=== PATIENT | male | born 1930 | race Caucasian/White ===

== ENCOUNTER 2018-04-26 22:29 | Inpatient (IN) | payer OTHER, MEDICARE ==
[~2018-04-26] VITALS: Ht 177.8 cm; Wt 89.7 kg
[~2018-04-26 22:29] MED LIST: ALPR.25; ALPR.5 PO; ALPR1 PO; AMIT50 PO; ASCO500; ASPI325; ASPI325 PO; ATEN50; ATOR10; ATOR20 PO; B-1100 MG PO; BENAML10/5; BUPR100ER PO; CITA20 PO; CLOP75; CLOP75 PO; CYAN100; CYAN1000 PO; DOCU100 PO; ESCI10 PO; FAMO10 PO; FAMO20 PO; FAMO40 PO; FOLI400; FURO20 PO; GABA300 PO; ISOD40ER PO; ISOMON30 PO; ISOMON60ER; KETO10 PO; LISI10 PO; LISI20; LISI20 PO; LOVA20 PO; METO25ER PO; METO50 PO; METO50ER PO; NITR.4SL SL; OMEP20ER PO; ONDA4ODT MM; OXYACE5T PO; OXYC10ER PO; OXYC15ER PO; OXYC30ER PO; OXYC5 PO; OXYCONTIN PO; OXYCONTIN SR PO; POTCHL20ER PO; PROM25 PO; PYRI100 PO; RANO500T PO; ROSU10TA PO; ROSU5 PO; RXNITR.4; SERT100; SERT100 PO; SPIR25 PO; Senna Laxative8.6 MG PO; TAMS.4ER PO; TOCO400; TOPI25; VITAMIN B12 PO; VITAMIN D PO; VITB100 PO; Zofran Odt4 MG SL; [UNRECOGNIZED DRUG - OTHER]; [UNRECOGNIZED DRUG - REMARK] PO
[2018-04-26 22:57] LABS: BASOPHILS ABSOLUTE AUTO 0.07 K/mm3 (0.00-0.23); BASOPHILS PERCENT AUTO 1 % (0-2); EOSINOPHILS ABSOLUTE AUTO 0.08 K/mm3 (0.00-0.68); EOSINOPHILS PERCENT AUTO 1 % (0-6); Hemoglobin 12.1 g/dL (13.5-17.5); IMMATURE GRAN ABSOLUTE AUTO 0.01 K/mm3 (0.00-0.10); IMMATURE GRAN PERCENT AUTO 0 % (0-1); LYMPHOCYTES ABSOLUTE AUTO 1.52 K/mm3 (0.84-5.20); LYMPHOCYTES PERCENT AUTO 17 % (21-46); MONOCYTES ABSOLUTE AUTO 0.96 K/mm3 (0.16-1.47); MONOCYTES PERCENT AUTO 11 % (4-13); Mean Corpuscular HGB Conc 34.6 g/dL (31.5-36.5); Mean Corpuscular Volume 98 fL (80-100); Mean Platelet Volume 10.4 fL (9.1-12.4); NEUTROPHILS ABSOLUTE AUTO 6.24 K/mm3 (1.96-9.15); NEUTROPHILS PERCENT AUTO 70 % (41-73); Platelet Count 208 K/mm3 (150-400); RDW Coefficient Variation 12.6 % (11.7-14.2); RDW Standard Deviation 45.6 fL (35.1-46.3); Red Blood Cell Count 3.56 M/mm3 (4.30-5.90); White Blood Cell Count 8.88 K/mm3 (4.00-11.30)
[2018-04-26 23:12] LABS: Alanine Aminotransfer (ALT/SGP 33 U/L (12-78); Albumin, Blood 3.8 g/dL (3.4-5.0); Alk Phos 68 U/L (50-136); Anion Gap 12 mmol/L (6-16); Aspartate Aminotrans (AST/SGOT 44 U/L (12-37); Bilirubin, Total 0.2 mg/dL (0.1-1.0); Blood Urea Nitrogen 32 mg/dL (8-24); Bun/Creatinine Ratio 27.4 (12.0-20.0); CO2, Blood 21 mmol/L (21-32); Calcium, Blood 9.1 mg/dL (8.5-10.1); Chloride, Blood 110 mmol/L (98-108); Creatinine, Blood 1.17 mg/dL (0.60-1.20); Globulin, Blood 3.7 g/dL (2.2-4.0); Glomerular Filtration Rate >60 (60-); Glucose, Blood 124 mg/dL (70-99); Potassium, Blood 3.4 mmol/L (3.5-5.5); Sodium, Blood 143 mmol/L (136-145); Total Protein, Blood 7.5 g/dL (6.4-8.2); Troponin I 0.034 ng/mL (0.000-0.040)
[2018-04-27 05:57] LABS: Hematocrit 32.7 % (37.0-53.0); Hemoglobin 11.1 g/dL (13.5-17.5); Mean Corpuscular HGB 33.1 pg (26.0-34.0); Mean Corpuscular HGB Conc 33.9 g/dL (31.5-36.5); Mean Corpuscular Volume 98 fL (80-100); Mean Platelet Volume 10.2 fL (9.1-12.4); Platelet Count 183 K/mm3 (150-400); RDW Coefficient Variation 12.8 % (11.7-14.2); RDW Standard Deviation 45.5 fL (35.1-46.3); Red Blood Cell Count 3.35 M/mm3 (4.30-5.90); White Blood Cell Count 6.88 K/mm3 (4.00-11.30)
[2018-04-27 06:18] LABS: Alanine Aminotransfer (ALT/SGP 32 U/L (12-78); Albumin, Blood 3.5 g/dL (3.4-5.0); Alk Phos 62 U/L (50-136); Anion Gap 5 mmol/L (6-16); Aspartate Aminotrans (AST/SGOT 42 U/L (12-37); Bilirubin, Total 0.4 mg/dL (0.1-1.0); Blood Urea Nitrogen 27 mg/dL (8-24); Bun/Creatinine Ratio 27.3 (12.0-20.0); CO2, Blood 27 mmol/L (21-32); Calcium, Blood 8.6 mg/dL (8.5-10.1); Chloride, Blood 111 mmol/L (98-108); Creatinine, Blood 0.99 mg/dL (0.60-1.20); Globulin, Blood 3.6 g/dL (2.2-4.0); Glomerular Filtration Rate >60 (60-); Glucose, Blood 92 mg/dL (70-99); Potassium, Blood 3.8 mmol/L (3.5-5.5); Sodium, Blood 143 mmol/L (136-145); Total Protein, Blood 7.1 g/dL (6.4-8.2)
[2018-04-27 07:03] LABS: Troponin I 1.49 ng/mL (0.000-0.040)
[2018-04-27 07:20] LABS: Creatine Kinase MB 14.7 ng/mL (0.0-3.6); Creatine Kinase MB Index 3.4 (0.0-4.0)
[2018-04-27] MEDS ORDERED: [UNRECOGNIZED DRUG - CODE] PO (07:53)
[2018-04-27] MEDS ORDERED: [UNRECOGNIZED DRUG - CODE] PO (07:54)
--- NOTE | 2018-04-27 15:27 | NUR ---
ADMIT TO 311 FROM ED. PT ARRIVED TO FLOOR IN NO ACUTE DISTRESS ACCOMPANIED BY FRIEND. DENIES CP, SOB OR NAUSEA NO HEADACHE DENIES ANY OTHER C/O. BED LOW AND IN LOCKED POSITION, CALL LIGHT WITHIN REACH. PT AND FRIEND INFORMED ABOUT FREQUENT ROUNDING.
--- NOTE | 2018-04-27 15:39 | NUR ---
SPOKE WITH PALLIATIVE CARE RN CONSULT REQUESTED.
--- NOTE | 2018-04-27 17:51 | NUR ---
SHIFT SUMMARY ED ADMIT @1430 FOR DIZZINESS AND ELEVATED TROPONIN. INDEPENDENT IN ROOM. DENIES ANY CP, SOB OR NAUSEA NO DIAPHORESIS. PLEASANT, TALKATIVE. MULTIPLE SD'S AND CABG.
[2018-04-27 17:58] LABS: Creatine Kinase MB 12.5 ng/mL (0.0-3.6)
[2018-04-27 17:59] LABS: Creatine Kinase MB Index 3.6 (0.0-4.0)
[2018-04-27 18:59] LABS: Source, Urine Clean Catch
[2018-04-27 19:38] LABS: Appearance, Urine Clear (Clear); Bilirubin, Urine Neg (Neg); Blood, Urine Neg (Neg); Color, Urine Yellow (P-Yellow); Glucose Qualitative, Urine Neg (Neg); Ketones, Urine Neg (Neg); Leukocyte Esterase, Urine Neg (Neg); Nitrite, Urine Neg (Neg); Protein, Urine Neg (Neg); Urobilinogen, Urine NORM (Normal)
--- NOTE | 2018-04-28 04:42 | NUR ---
ENVIRONMENTAL INTERN SUMMARY PT AAOX4 AND VERY PLEASANT. DR CELESTE CAME TO SEE PT AT START OF SHIFT AND ORDERED PT TO BE PLACED ON TELE MONITORING. TELE PLACED AND PT HAS BEEN SINUS RHYTHM WITH A 1ST DEG BLOCK, BBB, AND OCCASIONAL PVC'S. PT TO HAVE STRESS TEST IN THE MORNING AND HAS BEEN NPO SINCE MIDNIGHT IN PREP FOR TEST. PT HAS HAD NO COMPLAINTS AND STATES HE'S GOTTEN MORE SLEEP TONIGHT THAN THE PAST FEW DAYS. VSS, WILL CONTINUE TO MONITOR.
[2018-04-28 10:10] LABS: BASOPHILS ABSOLUTE AUTO 0.03 K/mm3 (0.00-0.23); BASOPHILS PERCENT AUTO 1 % (0-2); EOSINOPHILS PERCENT AUTO 2 % (0-6); Hemoglobin 11.4 g/dL (13.5-17.5); IMMATURE GRAN ABSOLUTE AUTO 0.01 K/mm3 (0.00-0.10); IMMATURE GRAN PERCENT AUTO 0 % (0-1); LYMPHOCYTES PERCENT AUTO 23 % (21-46); MONOCYTES PERCENT AUTO 9 % (4-13); Mean Corpuscular HGB 33.1 pg (26.0-34.0); Mean Corpuscular HGB Conc 33.5 g/dL (31.5-36.5); Mean Corpuscular Volume 99 fL (80-100); Mean Platelet Volume 10.4 fL (9.1-12.4); NEUTROPHILS ABSOLUTE AUTO 4.38 K/mm3 (1.96-9.15); NEUTROPHILS PERCENT AUTO 66 % (41-73); Platelet Count 164 K/mm3 (150-400); RDW Coefficient Variation 12.9 % (11.7-14.2); RDW Standard Deviation 46.3 fL (35.1-46.3); Red Blood Cell Count 3.44 M/mm3 (4.30-5.90); White Blood Cell Count 6.62 K/mm3 (4.00-11.30)
[2018-04-28 10:27] LABS: Anion Gap 6 mmol/L (6-16); Blood Urea Nitrogen 20 mg/dL (8-24); Bun/Creatinine Ratio 26.9 (12.0-20.0); CO2, Blood 26 mmol/L (21-32); Calcium, Blood 8.5 mg/dL (8.5-10.1); Chloride, Blood 111 mmol/L (98-108); Creatinine, Blood 0.74 mg/dL (0.60-1.20); Glomerular Filtration Rate >60 (60-); Glucose, Blood 89 mg/dL (70-99); Potassium, Blood 3.9 mmol/L (3.5-5.5); Sodium, Blood 143 mmol/L (136-145)
--- NOTE | 2018-04-28 16:10 | NUR ---
Initial Visit: Palliative Care Consult for Advanced Care Planning. Pt is A&O and reports 6/10 headache pain. Pt denies SOB, anxiety, nausea, and depression at this time. Pt served in the [employer] during the [place] [employer] and is a retired science analyst. He reports no religous beliefs. Engaged in therapeutic conversation about goals of care. He reports living at home alone. His this last July and admits struggling with his the of his for sometime but is coping better now. He reports no family that lives in [place] and has a friend that checks on him routinely and brings him meals. Discussed option for caregivers to come into his home to assist with needs and he denies need at this time. Discussed AD/POLST and Pt reports having a completed POLST and is at his PCP's office. He states that his wishes are for CPR and limited treatment. Pt reports no concerns at this time. Spoke with Pt's nurse Arely and reported Pt's headache. Arely reports no other concerns at this time. Will reamin available.
--- NOTE | 2018-04-28 18:41 | NUR ---
SHIFT SUMMARY PATIENT ALERT AND ORIENTED. INDEPENDENT IN THE ROOM. AWAITING THE STRESS PART OF HIS STRESS TEST AND POTENTIAL DISCHARGE IN THE AM.
[2018-04-29 04:57] LABS: BASOPHILS ABSOLUTE AUTO 0.04 K/mm3 (0.00-0.23); BASOPHILS PERCENT AUTO 1 % (0-2); EOSINOPHILS ABSOLUTE AUTO 0.18 K/mm3 (0.00-0.68); EOSINOPHILS PERCENT AUTO 3 % (0-6); Hematocrit 34.3 % (37.0-53.0); Hemoglobin 11.5 g/dL (13.5-17.5); IMMATURE GRAN ABSOLUTE AUTO 0.01 K/mm3 (0.00-0.10); IMMATURE GRAN PERCENT AUTO 0 % (0-1); LYMPHOCYTES ABSOLUTE AUTO 1.58 K/mm3 (0.84-5.20); LYMPHOCYTES PERCENT AUTO 25 % (21-46); MONOCYTES ABSOLUTE AUTO 0.71 K/mm3 (0.16-1.47); MONOCYTES PERCENT AUTO 11 % (4-13); Mean Corpuscular HGB 32.8 pg (26.0-34.0); Mean Corpuscular HGB Conc 33.5 g/dL (31.5-36.5); Mean Corpuscular Volume 98 fL (80-100); Mean Platelet Volume 10.6 fL (9.1-12.4); NEUTROPHILS ABSOLUTE AUTO 3.73 K/mm3 (1.96-9.15); NEUTROPHILS PERCENT AUTO 60 % (41-73); Platelet Count 169 K/mm3 (150-400); RDW Coefficient Variation 12.4 % (11.7-14.2); RDW Standard Deviation 44.8 fL (35.1-46.3); Red Blood Cell Count 3.51 M/mm3 (4.30-5.90); White Blood Cell Count 6.25 K/mm3 (4.00-11.30)
[2018-04-29 05:16] LABS: Anion Gap 6 mmol/L (6-16); Blood Urea Nitrogen 20 mg/dL (8-24); Bun/Creatinine Ratio 21.6 (12.0-20.0); CO2, Blood 26 mmol/L (21-32); Calcium, Blood 8.5 mg/dL (8.5-10.1); Chloride, Blood 110 mmol/L (98-108); Creatinine, Blood 0.93 mg/dL (0.60-1.20); Glomerular Filtration Rate >60 (60-); Glucose, Blood 96 mg/dL (70-99); Potassium, Blood 3.9 mmol/L (3.5-5.5); Sodium, Blood 142 mmol/L (136-145)
--- NOTE | 2018-04-29 08:06 | NUR ---
*SHIFT SUMMARY* PATIENT IS ALERT AND ORIENTED. INDEPENDENT IN ROOM. PATIENT COMPLAINS OF A HEADACHE. PATIENT REFUSED OXYCONTIN FOR HE STATES HE WAS PREVIOUSLY ADDICTED TO IT AND DOES NOT WANT TO START AGAIN. PATIENT HAS SECOND HALF OF STRESS TEST SCHEDULED TODAY. PATIENT IS ON TELE. NPO AFTER MIDNIGHT EXCEPT FOR MEDS AND ICE CHIPS. VITAL SIGNS STABLE. CALL LIGHT IN REACH, BED LOWERED AND LOCKED.
[2018-04-29] MEDS ORDERED: AMIT50 PO (16:39)
[2018-04-29] MEDS ORDERED: GABA400 PO (16:42)
[2018-04-29] MEDS ORDERED: RANO500T PO (16:49)
[2018-04-29] MEDS ORDERED: Isosorbide Dini30 MG PO (16:57)
[2018-04-29] MEDS ORDERED: OXYC10ER PO (17:00)
--- NOTE | 2018-04-29 17:25 | NUR ---
DISCHARGE PT DISHCARGED TO HOME. THIS RN EXPLAINED DISCHARGE INSTRUCTIONS AND MEDICATIONS TO PT AND HE REPORTS HE UNDERSTANDS. THIS RN FAXED PRESCRIPTIONS WITH H&P AND PROGRESS NOTE TO [facility] FOR MEDICATION TO BE FILLED. DR. CROOKS WROTE WRITTEN PRESCRIPTION FOR 1 WEEK SUPPLY OF IMDUR UNTIL MEDICATION IS FILLED AT [facility]. IV REMOVED WITHOUT DIFFICULTY. PT TRANSFERRED TO PRIVATE VEHICLE VIA WHEELCHAIR. PT'S BELONGINGS WITH PT.
== END 2018-04-29 17:30 | disposition home or self-care (01) | DRG 282 ==
LOC: ER 22:29 → ERHOLD 22:30 → MEDS 04-27 14:25 → ENPENDDIS 04-29 15:59 → MEDS 04-29 17:30
PROVIDERS: Emergency Medicine; Family Medicine; ADMIT Internal Medicine
DX: I21.4 Non-ST elevation (NSTEMI) myocardial infarction (principal); I25.10 Atherosclerotic heart disease of native coronary artery without angina pectoris; I25.5 Ischemic cardiomyopathy; I10 Essential (primary) hypertension; E78.5 Hyperlipidemia, unspecified; F32.9 Major depressive disorder, single episode, unspecified; D64.9 Anemia, unspecified; N40.0 Benign prostatic hyperplasia without lower urinary tract symptoms; K21.9 Gastro-esophageal reflux disease without esophagitis; E86.0 Dehydration; E87.6 Hypokalemia; K52.9 Noninfective gastroenteritis and colitis, unspecified; E78.00 Pure hypercholesterolemia, unspecified; Z88.5 Allergy status to narcotic agent; Z88.8 Allergy status to other drugs, medicaments and biological substances; I25.2 Old myocardial infarction; Z95.1 Presence of aortocoronary bypass graft; Z95.5 Presence of coronary angioplasty implant and graft; Z87.891 Personal history of nicotine dependence; Z79.02 Long term (current) use of antithrombotics/antiplatelets; Z79.82 Long term (current) use of aspirin; Z79.899 Other long term (current) drug therapy
CPT/HCPCS: 36415; 70450; 71046; 78452; 80048; 80053; 81003; 82550; 82553; 83880; 84484; 85025; 85027; 90686; 93005; 93010; 93017; 93306; 96365; 96366; 96372-59; 99285-25; A9500; J1650; J2785; J3480; J7030